=== PATIENT | male | born 2000 | race African-American/Black ===

== ENCOUNTER 2024-04-27 04:44 | Emergency (ER) | payer SELFPAY ==
[~2024-04-27] VITALS: Ht 180.3 cm; Wt 113.0 kg
[2024-04-27 04:44] VITALS: BP 127/83; PULSE 73; RESP 20; TEMP 97.8; O2SAT 96
[2024-04-27] MEDS ORDERED: DECADRON ONE (05:05)
[2024-04-27] MEDS: DECADRON IM ONE (05:08)
[2024-04-27 05:17] LABS: BASOPHIL % 0.2 % (0.0-0.2); EOSINOPHIL # 0.1 10^3/uL (0.0-0.2); EOSINOPHIL % 0.3 % (0.0-5.0); HEMATOCRIT(ML) 44.6 % (37.0-53.0); HEMOGLOBIN 14.9 g/dL (13.9-16.3); LYMPHOCYTES # 3.06 10^3/uL1 (1.0-4.8); LYMPHOCYTES % 19.1 % (24.0-44.0); MEAN CORP HGB CONCENTRATION 33.4 g/dL (33-36.5); MEAN CORP VOLUME 83.8 fL (78-100); MONOCYTES # 1.4 10^3/uL (0.3-0.8); MONOCYTES % 8.5 % (5.0-12.0); NEUTROPHIL # 11.5 10^3/uL (1.8-7.7); NEUTROPHILS % 71.7 % (41.0-85.0); PLATELET COUNT 322 10^3/uL (150-400); RED BLOOD CELL 5.32 10^6/uL (4.50-5.90); RED CELL DISTRIBUTION WIDTH 13.1 % (11.5-14.5); WHITE BLOOD CELL 16.1 10^3/uL (4.5-11.0)
[2024-04-27] MEDS ORDERED: XYLOCAINE ONE (05:22)
[2024-04-27] MEDS: XYLOCAINE 2% IH ONE (05:25)
[2024-04-27 05:26] VITALS: PULSE 70; RESP 20; O2SAT 96
[2024-04-27 05:28] LABS: +ADD MANUAL DIFF(NO CHRG) NO
[2024-04-27 05:36] LABS: ALBUMIN(ML) 3.4 g/dL (3.4-5.0); ALBUMIN/GLOBULIN RATIO 0.829; ANION GAP 13.1; BUN/CREATININE RATIO 12.84 (10.0-20.0); CALCIUM 9.6 mg/dL (8.4-10.5); CARBON DIOXIDE 25.7 mmol/L (20.0-32); CREATININE SERUM 1.09 mg/dL (0.59-1.40); EST GFR, NON-AA 82.4 (>/=60); POTASSIUM 3.8 mmol/L (3.6-5.2)
[2024-04-27 05:37] LABS: INFLUENZA VIRUS A ANTIGEN NEGATIVE (NEG); INFLUENZA VIRUS B ANTIGEN NEGATIVE (NEG)
[2024-04-27 05:38] VITALS: PULSE 70; RESP 20; O2SAT 96
[2024-04-27] MEDS ORDERED: ROCEPHIN ONE (06:02)
[2024-04-27] MEDS: ROCEPHIN IM STA (06:05)
== END 2024-04-27 06:11 | disposition home or self-care (01) ==
LOC: ER 04:44
DX: J02.9 Acute pharyngitis, unspecified (principal); D72.829 Elevated white blood cell count, unspecified; M79.604 Pain in right leg; M79.605 Pain in left leg
CPT/HCPCS: 99284; 96372 ×2; 80053; 85025; 36415; 85379; 87804 ×2; 94640; J1100; J2001; J0696